=== PATIENT | female | born 1990 | race Caucasian/White ===

== ENCOUNTER → 2016-10-14 | Outpatient (CLI) | payer BC ==
[2016-10-14 07:18] LABS: CARBON DIOXIDE 30 mEq/L (21-32); CHLORIDE 102 mEq/L (98-107)
[2016-10-14 07:20] LABS: HEMATOCRIT. 38.4 % (36.0-48.0); HEMOGLOBIN. 13.2 g/dL (12.0-16.0); MEAN CORPUSCULAR HEMOGLOBIN 31.7 pg (28.0-32.0); MEAN CORPUSCULAR VOLUME 92.1 fL (81.0-99.0); MEAN PLATELET VOLUME 9.3 fl (7.4-10.4); PLATELET 219 x1000/uL (130-400); RED BLOOD CELL COUNT 4.17 mill/uL (4.2-5.4); RED CELL DISTRIBUTION WIDTH 12.7 % (11.6-14.6)
[2016-10-14 07:21] LABS: BASOPHILS % 0.4 % (0.0-2.0); EOSINOPHILS % 0.2 % (0.0-5.0); LYMPHOCYTES % 22.9 % (20.0-50.0); MONOCYTES % 6.3 % (2.0-8.0); NEUTROPHILS % 70.2 % (40.0-76.0)
[2016-10-14 07:22] LABS: PARTIAL THROMBOPLASTIN TIME 25.8 sec (24.0-34.0); PROTHROMBIN TIME 10.4 sec
[2016-10-14 07:31] LABS: HEPATITIS B SURFACE AB < 3.1 mIU/mL
[2016-10-14 07:32] LABS: HCG SCREEN NEGATIVE
== END | disposition home or self-care (01) ==
LOC: LAB 06:39
PROVIDERS: ATTEND Ophthalmology
DX: Z01.818 Encounter for other preprocedural examination (principal); Z79.01 Long term (current) use of anticoagulants
CPT/HCPCS: 36415; 80053; 84703; 85025; 85610; 85730; 86703; 86706; 86803; 87186